=== PATIENT | male | born 1985 | race Caucasian/White ===

== ENCOUNTER 2023-02-19 14:19 | Observation (INO) | payer OTHER, MEDICAID, SELFPAY ==
[2023-02-19] VITALS (13 sets, daily range): BP systolic 90–129; BP diastolic 55–80; PULSE 65–111; RESP 14–19; TEMP 36.8–37.1; O2SAT 96–99; BMI 19.2
--- NOTE | 2023-02-19 17:29 | PC.NURSE ---
Pt brought back to fast track room at 1715. C/O dental pain and jaw pain x 3 days. Provider at chair-side for eval. VSS. Afebrile.
--- NOTE | 2023-02-19 17:36 | DI.CT.S_ITS ---
PROCEDURE: CT SOFT TISSUE NECK W CON INDICATIONS: right mandible/TMJ pain and swelling of neck, r/o abscess TECHNIQUE: After the administration of intravenous contrast, 3.0 mm axial sections acquired from the sella to the aortic arch. Additional oblique axial 3.0 mm sections acquired through the pharynx. 3 mm thick coronal and sagittal reformats were generated. For radiation dose reduction, the following was used: automated exposure control. COMPARISON: None. FINDINGS: Image quality: Excellent. Lymph nodes: No enlarged lymph nodes seen throughout the neck. Vessels: Visualized vasculature appears patent. Neck spaces: The oropharynx, nasopharynx, and pharynx demonstrate no mucosal lesions. The vocal cords, false vocal cords, pyriform sinuses, epiglottis, vallecula, and tongue base all appear normal. Extramucosal spaces appear unremarkable. Glands: The parotid and submandibular glands appear normal. Thyroid gland is unremarkable. Miscellaneous: Visualized brain and orbits appear normal. Small right apical pneumothorax. Superficial soft tissues appear normal. Bones: No suspicious bony lesions. Straightening and mild reversal of the normal cervical lordosis. Visualized sinuses and mastoids appear unremarkable. Several dental caries are noted. No periapical lucencies. IMPRESSION: 1. No organized fluid collections are seen. The temporomandibular joint appears within normal limits. 2. Small right apical pneumothorax. 3. Asymmetry medial to the right mandible, under the right tongue which is mildly hypoattenuating compared to the surrounding tissue of unclear etiology or significance. Correlate with patient's symptoms or physical exam. Findings discussed with Amparo PALACIOS by telephone 6:36 p.m. On 02/19/2023. Dictated by: Rony Gresham M.D. on 02/19/2023 at 18:25 Approved by: Rony Gresham M.D. on 02/19/2023 at 18:37
--- NOTE | 2023-02-19 17:44 | ED_ITS ---
HPI - Sepsis <Amparo Benito PA-C - Last Filed: 02/19/23 18:54> General Chief Complaint: Dental/Oral Mode of arrival: Ambulatory Source: patient Evaluation Sepsis Screen: No Definite Risk Sepsis Infection Criteria Present: Suspected New Infection Narrative: Patient is a 37-year-old male who presents with dental pain and inability to open his mouth. He reports a history of poor dentition with repeated dental abscesses. This last occurred 2 years ago and he was treated with oral antibiotics and improved. He presents today with right mandible/TMJ/neck soft tissue pain. Endorses chills 2 nights ago when he had a significant event with spasming of his jaw. He has been able to drink small amounts of fluids but not eat much because the difficulty opening his jaw. He denies cough or sore throat and is able to manage his secretions. He has a remote history of substance use, has not taken any pain medicine for this pain. He prefers to stay away from opiate medicines. Review of Systems <NAVA Bolivar Last Filed: 02/19/23 18:54> Review of Systems ROS Unobtainable: All systems reviewed & are unremarkable except as noted in HPI and below Patient History <NAVA Bolivar Last Filed: 02/19/23 18:54> Social History Smoking Status: Former smoker alcohol intake: former Smoking Status: Never smoker Substance Use Type: does not use Exam <NAVA Bolivar Last Filed: 02/19/23 18:54> Narrative Exam Narrative: GENERAL: 37 year old patient appears stated age. Well-developed patient, in mild distress. Patient is unkempt but pleasant and conversational. NEURO: AOx3. HEAD: Atraumatic. Normocephalic. EYES: Pupils equal round and reactive. Extraocular motions intact. No scleral icterus. No injection or drainage. ENT: Nose without bleeding or purulent drainage. Unable to visualize throat this patient has significant trismus, patient able to open jaw 10 mm. Multiple dental caries visible. Airway patent. NECK: Trachea midline. Tenderness over the right mandible at the angle of the jaw and over the TMJ small amount of edema just inferior to the angle of the mandible that is quite tender and slightly discolored. CARDIOVASCULAR: Regular rate and rhythm without murmurs, gallops, or rubs. RESPIRATORY: Clear to auscultation. Breath sounds equal bilaterally. No wheezes, rales, or rhonchi. EXTREMITIES: No edema or joint tenderness. SKIN: No rash or erythema of visible areas Initial Vital Signs Initial Vital Signs: Vital Signs Temperature 98.8 F 02/19/23 15:04 Pulse Rate 111 H 02/19/23 15:04 Respiratory Rate 17 02/19/23 15:04 Blood Pressure 129/80 02/19/23 15:04 Pulse Oximetry 99 02/19/23 15:04 Oxygen Delivery Method Room Air 02/19/23 15:04 <Luh Holguin DO - Last Filed: 02/20/23 04:28> Initial Vital Signs Initial Vital Signs: Vital Signs Temperature 98.8 F 02/19/23 15:04 Pulse Rate 111 H 02/19/23 15:04 Respiratory Rate 17 02/19/23 15:04 Blood Pressure 129/80 02/19/23 15:04 Pulse Oximetry 99 02/19/23 15:04 Oxygen Delivery Method Room Air 02/19/23 15:04 Course <Amparo Benito PA-C - Last Filed: 02/19/23 18:54> Orders Ordered: ED Orders 02/19/23 19:43 CT chest wo con Stat 02/19/23 20:00 Blood Culture Stat Acetaminophen (Acetaminophen 325 Mg Tablet) 650 mg PO Q4H PRN PRN Reason: Fever/Mild Pain (1-3) Last Admin: 02/20/23 01:17 Dose: 650 mg Documented By: Ketorolac Tromethamine (Ketorolac 10 Mg Tablet) 10 mg PO Q6HR PRN PRN Reason: Pain, Mild (1-3) Stop: 02/25/23 00:19 Oxycodone HCl (Oxycodone Ir 5 Mg Tablet) 5 mg PO Q4HR PRN PRN Reason: Pain, Moderate (4-6) Last Admin: 02/20/23 01:17 Dose: 5 mg Documented By: MS Discontinued Medications Ampicillin Sodium/Sulbactam (Sodium 3 gm/ Sodium Chloride) 100 mls @ 200 mls/hr IV NOW ONE Stop: 02/19/23 19:15 Last Infusion: 02/19/23 20:40 Dose: 0 mls/hr Documented By: Infusion: 02/19/23 20:06 Dose: 200 mls/hr Documented By: Infusion: 02/19/23 19:50 Dose: 0 mls/hr Documented By: Admin: 02/19/23 19:45 Dose: 200 mls/hr Documented By: RENATA Sodium Chloride (Normal Saline 0.9%) 1,000 mls @ 1,000 mls/hr IV BOLUS ONE Stop: 02/20/23 00:10 Last Infusion: 02/19/23 23:26 Dose: 1,000 mls/hr Documented By: Admin: 02/19/23 23:15 Dose: 1,000 mls/hr Documented By: RENATA Ketorolac Tromethamine (Ketorolac 30 Mg/Ml Vial) 15 mg IV NOW ONE Stop: 02/19/23 18:00 Last Admin: 02/19/23 18:08 Dose: 15 mg Documented By: AUSTYN Vital Signs Vital signs: Vital Signs - 8 hr 02/19/23 20:30 02/19/23 20:30 02/19/23 21:00 Pulse Rate 72 Respiratory Rate 19 Blood Pressure 107/73 117/78 Pulse Oximetry 97 Oxygen Delivery Method Room Air 02/19/23 21:00 02/19/23 21:30 02/19/23 21:30 Pulse Rate 70 68 Respiratory Rate 18 18 Blood Pressure 109/70 Pulse Oximetry 99 99 Oxygen Delivery Method Room Air Room Air 02/19/23 22:00 02/19/23 22:00 Pulse Rate 65 Respiratory Rate 17 Blood Pressure 108/64 Pulse Oximetry 97 Oxygen Delivery Method Room Air <Luh Holguin, DO - Last Filed: 02/20/23 04:28> Orders Ordered: ED Orders 02/19/23 19:43 CT chest wo con Stat 02/19/23 20:00 Blood Culture Stat Acetaminophen (Acetaminophen 325 Mg Tablet) 650 mg PO Q4H PRN PRN Reason: Fever/Mild Pain (1-3) Last Admin: 02/20/23 01:17 Dose: 650 mg Documented By: Ketorolac Tromethamine (Ketorolac 10 Mg Tablet) 10 mg PO Q6HR PRN PRN Reason: Pain, Mild (1-3) Stop: 02/25/23 00:19 Oxycodone HCl (Oxycodone Ir 5 Mg Tablet) 5 mg PO Q4HR PRN PRN Reason: Pain, Moderate (4-6) Last Admin: 02/20/23 01:17 Dose: 5 mg Documented By: MS Discontinued Medications Ampicillin Sodium/Sulbactam (Sodium 3 gm/ Sodium Chloride) 100 mls @ 200 mls/hr IV NOW ONE Stop: 02/19/23 19:15 Last Infusion: 02/19/23 20:40 Dose: 0 mls/hr Documented By: Infusion: 02/19/23 20:06 Dose: 200 mls/hr Documented By: Infusion: 02/19/23 19:50 Dose: 0 mls/hr Documented By: Admin: 02/19/23 19:45 Dose: 200 mls/hr Documented By: RENATA Sodium Chloride (Normal Saline 0.9%) 1,000 mls @ 1,000 mls/hr IV BOLUS ONE Stop: 02/20/23 00:10 Last Infusion: 02/19/23 23:26 Dose: 1,000 mls/hr Documented By: Admin: 02/19/23 23:15 Dose: 1,000 mls/hr Documented By: RENATA Ketorolac Tromethamine (Ketorolac 30 Mg/Ml Vial) 15 mg IV NOW ONE Stop: 02/19/23 18:00 Last Admin: 02/19/23 18:08 Dose: 15 mg Documented By: AUSTYN Vital Signs Vital signs: Vital Signs - 8 hr 02/19/23 20:30 02/19/23 20:30 02/19/23 21:00 Pulse Rate 72 Respiratory Rate 19 Blood Pressure 107/73 117/78 Pulse Oximetry 97 Oxygen Delivery Method Room Air 02/19/23 21:00 02/19/23 21:30 02/19/23 21:30 Pulse Rate 70 68 Respiratory Rate 18 18 Blood Pressure 109/70 Pulse Oximetry 99 99 Oxygen Delivery Method Room Air Room Air 02/19/23 22:00 02/19/23 22:00 Pulse Rate 65 Respiratory Rate 17 Blood Pressure 108/64 Pulse Oximetry 97 Oxygen Delivery Method Room Air Sepsis Evaluation (ED) <Amparo Benito PA-C - Last Filed: 02/19/23 18:54> Triage Screening Sepsis Screen: No Definite Risk Level 1 - Infection Sepsis Infection Criteria Present: Suspected New Infection Response It is my opinion that his patient have a likely infectious etiology for meeting sepsis criteria: Does Not Fluid calculation based on 30 mL/kg within 1hr of criteria: N/A Antibiotics initiated within 1 hr of Sepis dx: No Tissue Perfusion Reassessed within 6 hrs of infusion start time: No MDM - Sepsis <Amparo Benito PA-C - Last Filed: 02/19/23 18:54> Lab Data 02/19/23 17:44 02/19/23 17:44 Labs: Lab Results 02/19/23 02/19/23 02/19/23 Range/Units 17:44 17:44 17:44 WBC 8.6 (4.5-11.0) X10^3/uL RBC 4.91 (4.5-5.9) X10^6/uL Hgb 15.3 (13.5-17.5) g/dL Hct 44.3 (41-53) % MCV 90.2 (80-100) fL MCH 31.2 (26-34) PG MCHC 34.6 (30-36) % RDW 13.0 (11.6-14.8) % Plt Count 235 (150-400) X10^3/uL Neut % (Auto) 65.2 (50-75) % Lymph % (Auto) 26.1 (25-40) % Henry % (Auto) 7.1 (3-14) % Eos % (Auto) 1.0 L (2-4) % Baso % (Auto) 0.6 (0-2) % Neut # (Auto) 5600 (5573-0824) /uL Lymph # (Auto) 2200 (1663-5530) /uL Henry # (Auto) 600 (0-900) /uL Eos # (Auto) 100 (0-450) /uL Baso # (Auto) 0 (0-100) /uL Sodium 139 (137-145) mmol/L Potassium 4.1 (3.4-5.1) mmol/L Chloride 98 (98-107) mmol/L Carbon Dioxide 29 (22-32) mmol/L BUN 10 (9-20) mg/dL Creatinine 0.85 (0.66-1.25) mg/dL Estimated GFR > 60 (>60) mL/min BUN/Creatinine Ratio 11.8 (6-22) Glucose 100 (70-100) mg/dL Lactate 1.4 (0.7-2.1) mmol/L Calcium 10.3 H (8.4-10.2) mg/dL Total Bilirubin 0.7 (0.2-1.3) mg/dL AST 17 (17-59) IU/L ALT 14 (<50) IU/L Alkaline Phosphatase 67 (38-126) U/L Total Protein 8.8 H (6.3-8.2) g/dL Albumin 4.8 (3.5-5.0) g/dL Globulin 4.0 (1.7-4.1) g/dL Albumin/Globulin Ratio 1.2 (1.0-2.8) Urine Color Urine Appearance Urine pH (4.5-8.0) Ur Specific [place] (1.000-1.035) Urine Protein (Negative) Urine Glucose (UA) (Negative) g/dL Urine Ketones (NEGATIVE) Urine Occult Blood (Negative) Urine Nitrate (Negative) Urine Bilirubin (NEGATIVE) Urine Urobilinogen (0.2) E.U./dL Ur Leukocyte Esterase (NEGATIVE) Urine RBC (0-5/HPF) Urine WBC (0-5/HPF) Ur Squamous Epith Cells (0-5/HPF) Urine Bacteria (None) Ur Culture Indicated? 02/19/23 Range/Units 18:02 WBC (4.5-11.0) X10^3/uL RBC (4.5-5.9) X10^6/uL Hgb (13.5-17.5) g/dL Hct (41-53) % MCV (80-100) fL MCH (26-34) PG MCHC (30-36) % RDW (11.6-14.8) % Plt Count (150-400) X10^3/uL Neut % (Auto) (50-75) % Lymph % (Auto) (25-40) % Henry % (Auto) (3-14) % Eos % (Auto) (2-4) % Baso % (Auto) (0-2) % Neut # (Auto) (7465-3248) /uL Lymph # (Auto) (1822-8639) /uL Henry # (Auto) (0-900) /uL Eos # (Auto) (0-450) /uL Baso # (Auto) (0-100) /uL Sodium (137-145) mmol/L Potassium (3.4-5.1) mmol/L Chloride (98-107) mmol/L Carbon Dioxide (22-32) mmol/L BUN (9-20) mg/dL Creatinine (0.66-1.25) mg/dL Estimated GFR (>60) mL/min BUN/Creatinine Ratio (6-22) Glucose (70-100) mg/dL Lactate (0.7-2.1) mmol/L Calcium (8.4-10.2) mg/dL Total Bilirubin (0.2-1.3) mg/dL AST (17-59) IU/L ALT (<50) IU/L Alkaline Phosphatase (38-126) U/L Total Protein (6.3-8.2) g/dL Albumin (3.5-5.0) g/dL Globulin (1.7-4.1) g/dL Albumin/Globulin Ratio (1.0-2.8) Urine Color Yellow Urine Appearance Clear Urine pH 6.5 (4.5-8.0) Ur Specific [place] <=1.005 (1.000-1.035) Urine Protein Negative (Negative) Urine Glucose (UA) Negative (Negative) g/dL Urine Ketones Trace H (NEGATIVE) Urine Occult Blood Trace-intact (Negative) Urine Nitrate Negative (Negative) Urine Bilirubin Negative (NEGATIVE) Urine Urobilinogen 0.2 (0.2) E.U./dL Ur Leukocyte Esterase Negative (NEGATIVE) Urine RBC 0-1/hpf (0-5/HPF) Urine WBC None seen (0-5/HPF) Ur Squamous Epith Cells 0-1 /hpf (0-5/HPF) Urine Bacteria None seen (None) Ur Culture Indicated? Cult not indicated Imaging Data CT soft tissue neck: Radiologist's Impression: PROCEDURE:? CT SOFT TISSUE NECK W CON ? INDICATIONS:? right mandible/TMJ pain and swelling of neck, r/o abscess ? TECHNIQUE:? After the administration of intravenous contrast, 3.0 mm axial sections acquired from the sella to the aortic arch.? Additional oblique axial 3.0 mm sections acquired through the pharynx.? 3 mm thick coronal and sagittal reformats were generated.? For radiation dose reduction, the following was used:? automated exposure control.? ? COMPARISON:? None. ? FINDINGS:? Image quality:? Excellent.? ? Lymph nodes:? No enlarged lymph nodes seen throughout the neck.? ? Vessels:? Visualized vasculature appears patent.? ? Neck spaces:? The oropharynx, nasopharynx, and pharynx demonstrate no mucosal l esions.? The vocal cords, false vocal cords, pyriform sinuses, epiglottis, vallecula, and tongue base all appear normal.? Extramucosal spaces appear unremarkable.? ? Glands:? The parotid and submandibular glands appear normal.? Thyroid gland is unremarkable.? ? Miscellaneous:? Visualized brain and orbits appear normal.? Small right apical pneumothorax.? Superficial soft tissues appear normal. ? Bones:? No suspicious bony lesions.? Straightening and mild reversal of the normal cervical lordosis.? Visualized sinuses and mastoids appear unremarkable.? Several dental caries are noted.? No periapical lucencies. ? ? IMPRESSION:? ? 1. No organized fluid collections are seen.? The temporomandibular joint appears within normal limits. 2. Small right apical pneumothorax. 3. Asymmetry medial to the right mandible, under the right tongue which is mildly hypoattenuating compared to the surrounding tissue of unclear etiology or significance.? Correlate with patient's symptoms or physical exam. ? ? Findings discussed with Amparo PALACIOS by telephone 6:36 p.m. On 02/19/2023.? ? Dictated by: Rony Gresham M.D. on 02/19/2023 at 18:25 ? ? Approved by: Rony Gresham M.D. on 02/19/2023 at 18:37 ? MDM Narrative Medical decision making narrative: Multiple etiologies for patient's symptoms considered including, but not limited to: Dental infection, George's angina, peritonsillar abscess, parapharyngeal space infection. CT scan of soft tissue neck completed given patient's pain and swelling with point tenderness below the angle of the jaw on the right. Notified by radiology that there is a small pneumothorax on the right, patient has no complaints of chest pain and is saturating 100%. We will obtain chest x-ray. CT does not show any abscess. Radiology did comment on an asymmetric quality below the tongue; I palpated under the tongue with my finger and there was no focal tenderness, patient commented on pain that radiated into his right TMJ. Labs without evidence of infection. Patient also noted approximately 6 months of discolored and foul smelling urine. UA completed in the ER was no significant findings. Chest x-ray pending at the time of sign-out to Dr. Holguin. <Luh Holguin, - Last Filed: 02/20/23 04:28> Lab Data Labs: Lab Results 02/19/23 02/19/23 02/19/23 Range/Units 17:44 17:44 17:44 WBC 8.6 (4.5-11.0) X10^3/uL RBC 4.91 (4.5-5.9) X10^6/uL Hgb 15.3 (13.5-17.5) g/dL Hct 44.3 (41-53) % MCV 90.2 (80-100) fL MCH 31.2 (26-34) PG MCHC 34.6 (30-36) % RDW 13.0 (11.6-14.8) % Plt Count 235 (150-400) X10^3/uL Neut % (Auto) 65.2 (50-75) % Lymph % (Auto) 26.1 (25-40) % Henry % (Auto) 7.1 (3-14) % Eos % (Auto) 1.0 L (2-4) % Baso % (Auto) 0.6 (0-2) % Neut # (Auto) 5600 (9890-0164) /uL Lymph # (Auto) 2200 (3463-9547) /uL Henry # (Auto) 600 (0-900) /uL Eos # (Auto) 100 (0-450) /uL Baso # (Auto) 0 (0-100) /uL Sodium 139 (137-145) mmol/L Potassium 4.1 (3.4-5.1) mmol/L Chloride 98 (98-107) mmol/L Carbon Dioxide 29 (22-32) mmol/L BUN 10 (9-20) mg/dL Creatinine 0.85 (0.66-1.25) mg/dL Estimated GFR > 60 (>60) mL/min BUN/Creatinine Ratio 11.8 (6-22) Glucose 100 (70-100) mg/dL Lactate 1.4 (0.7-2.1) mmol/L Calcium 10.3 H (8.4-10.2) mg/dL Total Bilirubin 0.7 (0.2-1.3) mg/dL AST 17 (17-59) IU/L ALT 14 (<50) IU/L Alkaline Phosphatase 67 (38-126) U/L Total Protein 8.8 H (6.3-8.2) g/dL Albumin 4.8 (3.5-5.0) g/dL Globulin 4.0 (1.7-4.1) g/dL Albumin/Globulin Ratio 1.2 (1.0-2.8) Urine Color Urine Appearance Urine pH (4.5-8.0) Ur Specific [place] (1.000-1.035) Urine Protein (Negative) Urine Glucose (UA) (Negative) g/dL Urine Ketones (NEGATIVE) Urine Occult Blood (Negative) Urine Nitrate (Negative) Urine Bilirubin (NEGATIVE) Urine Urobilinogen (0.2) E.U./dL Ur Leukocyte Esterase (NEGATIVE) Urine RBC (0-5/HPF) Urine WBC (0-5/HPF) Ur Squamous Epith Cells (0-5/HPF) Urine Bacteria (None) Ur Culture Indicated? 02/19/23 Range/Units 18:02 WBC (4.5-11.0) X10^3/uL RBC (4.5-5.9) X10^6/uL Hgb (13.5-17.5) g/dL Hct (41-53) % MCV (80-100) fL MCH (26-34) PG MCHC (30-36) % RDW (11.6-14.8) % Plt Count (150-400) X10^3/uL Neut % (Auto) (50-75) % Lymph % (Auto) (25-40) % Henry % (Auto) (3-14) % Eos % (Auto) (2-4) % Baso % (Auto) (0-2) % Neut # (Auto) (9797-3866) /uL Lymph # (Auto) (6694-3880) /uL Henry # (Auto) (0-900) /uL Eos # (Auto) (0-450) /uL Baso # (Auto) (0-100) /uL Sodium (137-145) mmol/L Potassium (3.4-5.1) mmol/L Chloride (98-107) mmol/L Carbon Dioxide (22-32) mmol/L BUN (9-20) mg/dL Creatinine (0.66-1.25) mg/dL Estimated GFR (>60) mL/min BUN/Creatinine Ratio (6-22) Glucose (70-100) mg/dL Lactate (0.7-2.1) mmol/L Calcium (8.4-10.2) mg/dL Total Bilirubin (0.2-1.3) mg/dL AST (17-59) IU/L ALT (<50) IU/L Alkaline Phosphatase (38-126) U/L Total Protein (6.3-8.2) g/dL Albumin (3.5-5.0) g/dL Globulin (1.7-4.1) g/dL Albumin/Globulin Ratio (1.0-2.8) Urine Color Yellow Urine Appearance Clear Urine pH 6.5 (4.5-8.0) Ur Specific [place] <=1.005 (1.000-1.035) Urine Protein Negative (Negative) Urine Glucose (UA) Negative (Negative) g/dL Urine Ketones Trace H (NEGATIVE) Urine Occult Blood Trace-intact (Negative) Urine Nitrate Negative (Negative) Urine Bilirubin Negative (NEGATIVE) Urine Urobilinogen 0.2 (0.2) E.U./dL Ur Leukocyte Esterase Negative (NEGATIVE) Urine RBC 0-1/hpf (0-5/HPF) Urine WBC None seen (0-5/HPF) Ur Squamous Epith Cells 0-1 /hpf (0-5/HPF) Urine Bacteria None seen (None) Ur Culture Indicated? Cult not indicated MDM Narrative Medical decision making narrative: Multiple etiologies for patient's symptoms considered including, but not limited to: Dental infection, George's angina, peritonsillar abscess, parapharyngeal space infection. CT scan of soft tissue neck completed given patient's pain and swelling with point tenderness below the angle of the jaw on the right. Notified by radiology that there is a small pneumothorax on the right, patient has no complaints of chest pain and is saturating 100%. We will obtain chest x-ray. CT does not show any abscess. Radiology did comment on an asymmetric quality below the tongue; I palpated under the tongue with my finger and there was no focal tenderness, patient commented on pain that radiated into his right TMJ. Labs without evidence of infection. Patient also noted approximately 6 months of discolored and foul smelling urine. UA completed in the ER was no significant findings. Chest x-ray pending at the time of sign-out to Dr. Holguin. DR. Holguin-I received sign-out from a PC of seen evaluated patient myself and along side with her. Patient presents today with jaw pain on the right side. He initially reports some sort of spasm he may have had a fever once been getting worse over the last 3 days. He is unable to open his jaw completely. On my physical exam he is tender in his TMJ joint. He has mild submandibular cervical lymphadenopathy. He has no swelling. CT has been reviewed he has a right apical pneumothorax. There are no organized fluid collections that are seen and there is some abnormality in the right mandible near patient's tongue. On physical exam patient does not have any pain in his tongue he is managing his own secretions in fact he is quite thirsty. Unfortunately due to pain at the TMJ and jaw he is unable to open his mouth completely. This area that they are mentioning is not measured. Chest x-ray and CT of the chest again show a small apical pneumothorax on the right. This is unlikely related to why he is here today and an incidental finding. It is unclear how long this is been here. He is a smoker, possible bleb. He is not hypotensive or hypoxic. Case is discussed with Dr. Knowles who reports observation with repeat x-ray in the morning. However with dental pain ongoing issues prefers if patient be admitted to the hospitalist. Dr. Holley, recommends discussing case with ENT 21:20-Dr. Goodman updated on patient's symptoms test results reports out a fluid collection on the CT this is unlikely to be a George's angina, there is nothing for him to drain. Dr. Mckinnon spoke with Dr. Goodman himself in the conclusion was to talk was oral surgery for possible dental abscess There is no evidence of dental abscess on exam. He has no fever no leukocytosis he has no evidence of sepsis. He is tender in his TMJ it is unclear exactly what is happening in his jaw there is no evidence of a deep neck soft tissue infection. Nonetheless he is given a dose of IV Unasyn in the ED. I think it is reasonable to keep him on antibiotics, but again the CT does not show any fluid collection anywhere. He can is managing his own secretions without difficulty. He does drink through a straw but he is able to do so easily. Dr. Knowles again updated on very sent recommendations by hospitalist and ENT. At this time he agrees to admit the patient to observation for the pneumothorax. The patient should be discharged on amoxicillin 500mg twice a day for 7 days. Discharge Plan Departure Patient Disposition: Admitted as Observation Clinical Impression: Pneumothorax on right Admit Date/Time: 02/19/23 22:25 Admit Provider: Bernard Knowles
--- NOTE | 2023-02-19 17:53 | PC.NURSE ---
Addendum entered by Farrah Song R.N. 02/19/23 18:16: HR 99 Original Note: Patient has returned from CT. [employer] chair-side for consult in fast track room. Pt will go back to the lobby after [employer] consult, per PA provider, and wait for an available treatment room. 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
[2023-02-19 17:56] LABS: Add Manual Diff / Slide Review NO; Basophils Absolute Auto 0 /uL (0-100); Basophils Percent Auto 0.6 % (0-2); Eosinophils Absolute Auto 100 /uL (0-450); Hematocrit 44.3 % (41-53); Hemoglobin 15.3 g/dL (13.5-17.5); Lymphocytes Absolute Auto 2200 /uL (1100-4500); Lymphocytes Percent Auto 26.1 % (25-40); Mean Corpuscular HGB Conc 34.6 % (30-36); Mean Corpuscular Hemoglobin 31.2 PG (26-34); Mean Corpuscular Volume 90.2 fL (80-100); Monocytes Absolute Auto 600 /uL (0-900); Monocytes Percent Auto 7.1 % (3-14); Neutrophils Absolute Auto 5600 /uL (1500-7000); Neutrophils Percent Auto 65.2 % (50-75); Platelet Count 235 X10^3/uL (150-400); Red Blood Cell Count 4.91 X10^6/uL (4.5-5.9); White Blood Cell Count 8.6 X10^3/uL (4.5-11.0)
--- NOTE | 2023-02-19 17:59 | CM.SWNOTE ---
Addendum entered by Shannon Fabian 02/19/23 19:53: Per ED provider and charger operator, patient is to be admitted for further observation and treatment due to concern for pneumothorax and possible dental infections requiring antibiotic treatment. LIBBY Lazaro Original Note: ED FIRMWARE ARCHITECT Note FIRMWARE ARCHITECT receives consult for patient for housing resources. Patient is 37 y/o male who presents to ED due to concern for mouth pain, inability to eat and drink the last 3 days. FIRMWARE ARCHITECT enters room to meet with patient, patient presents as A/Ox4. Patient presents as euthymic, communicative and calm. Patient endorses he lives in his car and moved to the area to see the [facility]. Patient endorses he has been living in [place] or [facility] but a few months he was working in [facility]. Patient endorses he does not have a current dentist. Patient states he receives food stamps and has Medicaid insurance. Patient endorses he is looking for work and housing. FIRMWARE ARCHITECT provides patient with resources for dental care, housing and basic needs. Patient endorses he has a phone but presents with some concerns with using his phone. FIRMWARE ARCHITECT offers bus passes, patient denies need. Plan: Patient to d/c to community upon medical clearance. Patient to f/u with resources provided. LIBBY Lazaro
[2023-02-19 18:08] LABS: Alanine Aminotransferase 14 IU/L (<50); Albumin 4.8 g/dL (3.5-5.0); Albumin Globulin Ratio 1.2 (1.0-2.8); Alkaline Phosphatase 67 U/L (38-126); Aspartate Aminotransferase 17 IU/L (17-59); BUN Creatinine Ratio 11.8 (6-22); Bilirubin Total 0.7 mg/dL (0.2-1.3); Blood Urea Nitrogen 10 mg/dL (9-20); Calcium 10.3 mg/dL (8.4-10.2); Carbon Dioxide 29 mmol/L (22-32); Chloride 98 mmol/L (98-107); Estimated Glomerular Filt Rate > 60 mL/min (>60); Glucose 100 mg/dL (70-100); HEMOLYSIS < 15 (0-50); Lactate (Lactic Acid) 1.4 mmol/L (0.7-2.1); Potassium 4.1 mmol/L (3.4-5.1); Sodium 139 mmol/L (137-145); Total Protein 8.8 g/dL (6.3-8.2)
[2023-02-19] MEDS: KETOROLAC 30 MG/ML VIAL 15 MG IV (18:08)
[2023-02-19 18:19] LABS: Appearance Urine UA CLEAR; Bilirubin Urine UA NEGATIVE (NEGATIVE); Color Urine UA YELLOW; Glucose Urine UA NEGATIVE (Negative); Ketones Urine UA TRACE (NEGATIVE); Leukocyte Esterase Urine UA NEGATIVE (NEGATIVE); Nitrite Urine UA NEGATIVE (Negative); Occult Blood Urine UA TRACE-INTACT (Negative); Protein Urine UA NEGATIVE (Negative); Specific Gravity Urine UA <=1.005 (1.000-1.035); Urobilinogen Urine UA 0.2 E.U./dL (0.2); pH Urine UA 6.5 (4.5-8.0)
[2023-02-19 18:29] LABS: Bacteria Urine None Seen; Culture Indicated Urine Cult Not Indicated; RBC Urine 0-1/HPF (0-5/HPF); Squamous Epithelial Cell Urine 0-1 /HPF (0-5/HPF); WBC Urine None Seen (0-5/HPF)
--- NOTE | 2023-02-19 18:37 | DI.RAD.S_ITS ---
PROCEDURE: XR CHEST 2V INDICATIONS: pneumo seen on CT TECHNIQUE: 2 views of the chest were acquired. COMPARISON: None. FINDINGS: Surgical changes and devices: None. Lungs and pleura: Lungs are clear. No pleural effusion. Small right apical pneumothorax. Mediastinum: Mediastinal contours are normal. Heart size is normal. Bones and chest wall: No suspicious bony abnormalities. Soft tissues appear unremarkable. IMPRESSION: Small right apical pneumothorax. No focal pulmonary consolidations. Dictated by: Rony Gresham M.D. on 02/19/2023 at 19:40 Approved by: Rony Gresham M.D. on 02/19/2023 at 19:41
--- NOTE | 2023-02-19 19:43 | DI.CT.S_ITS ---
PROCEDURE: CT CHEST WO CON INDICATIONS: right pneumo TECHNIQUE: Noncontrast 5 mm thick sections acquired from the pulmonary apices to the posterior costophrenic angles. 1 mm lung window, 5 mm thick coronal and sagittal and 7 mm axial MIP reformats were then acquired. For radiation dose reduction, the following was used: automated exposure control, adjustment of mA and/or kV according to patient size. COMPARISON: [facility], CR, XR CHEST 2V, 02/19/2023, 19:05. FINDINGS: Image quality: Excellent. Lower Neck: No lymphadenopathy by size criteria. Thyroid: Visualized thyroid demonstrates no discrete nodules. Axillae: No lymphadenopathy by size criteria. Chest Wall: Unremarkable. Bones: Visualized osseous structures demonstrate no suspicious lesions. Lungs and Airways: There is mild atelectasis or scarring in the right apex. No acute consolidation. There is a 0.3 cm nodule in the right upper lobe on series 3, image 115. The trachea and central airways are patent. Pleura: There is a small right apical pneumothorax. No pleural effusions. Heart: Heart size is normal. No pericardial effusion. Thoracic Vessels: The aorta and pulmonary arteries are normal in size. Mediastinum and Elenita: No lymphadenopathy by size criteria. Esophagus: No wall thickening. No hiatal hernia. Abdomen: Visualized upper abdominal solid organs and bowel loops appear normal in the absence of contrast. IMPRESSION: 1. Small right apical pneumothorax. 2. Mild right apical atelectasis or scarring. 3. Small right upper lobe 0.3 cm nodule. If patient is at high risk for malignancy, a follow-up CT may be performed in 12 months to demonstrate stability. Dictated by: Kelvin Valentin M.D. on 02/19/2023 at 20:22 Approved by: Kelvin Valentin M.D. on 02/19/2023 at 20:27
[2023-02-19] MEDS: AMPICILLIN/SULBACTAM 3 GM 3 GM in SODIUM CHLORIDE 0.9% 100 ML IV (19:45)
[2023-02-19] MEDS: SODIUM CHLORIDE 0.9% 1,000 ML 1000 ML IV (23:15)
[2023-02-20 00:10] VITALS: BP 108/70; PULSE 67; RESP 17; TEMP 36.7; O2SAT 97
[2023-02-20] MEDS: ACETAMINOPHEN 325 MG TABLET 650 MG PO (01:17)
[2023-02-20] MEDS: OXYCODONE IR 5 MG TABLET PO (01:17)
--- NOTE | 2023-02-20 07:00 | PC.NURSE ---
Patient showing ST elevation on 3 leads, per ELECTRONICS UTILITY WORKER. Notified Dr. Knowles and received order for EKG. EKG results continue to show ST Elevations, Dr. Knowles notified and received order for troponin.
[2023-02-20 07:11] LABS: Troponin I < 0.012 ng/mL (0.01-0.034)
--- NOTE | 2023-02-20 07:14 | DI.RAD.S_ITS ---
PROCEDURE: XR CHEST 1V INDICATIONS: f/u pnx TECHNIQUE: One view of the chest was acquired. COMPARISON: [facility], CR, XR CHEST 2V, 02/19/2023, 19:05. FINDINGS: Surgical changes and devices: None. Lungs and pleura: Unchanged trace right apical pneumothorax. Mediastinum: Mediastinal contours appear normal. Heart size is normal. Bones and chest wall: No suspicious bony lesions. Overlying soft tissues appear unremarkable. IMPRESSION: Unchanged trace right apical pneumothorax. Dictated by: Antwan Gray M.D. on 02/20/2023 at 8:56 Approved by: Antwan Gray M.D. on 02/20/2023 at 8:57
[2023-02-20] MEDS: KETOROLAC 10 MG TABLET PO (08:42)
[2023-02-20 09:06] VITALS: BP 105/66; PULSE 67; RESP 18; TEMP 36.8; O2SAT 97
--- NOTE | 2023-02-20 10:27 | P.HP_ITS ---
History of Present Illness History of Present Illness Date Patient Seen: 02/20/23 Time Patient Seen: 10:27 Chief complaint: can't open mouth T-3 can't drink or eat Narrative: 37-year-old homeless man with a history of substance abuse and poor dentition presents to the emergency department at [facility] February 19 for evaluation jaw pain. He had difficulty opening his mouth for the past several days and difficulty swallowing liquids. CT soft tissue neck demonstrates an incidental small right apical pneumothorax and asymmetry medial to the right mandible under the right tongue mildly hypoattenuating. No shortness of breath. These findings were discussed with the hospitalist as well as ENT who recommended dental follow-up and antibiotic therapy. He was admitted to the hospital for observation of his pneumothorax. Repeat chest x-ray this morning demonstrates unchanged small apical pneumothorax. No difficulty breathing overnight. Oxygen saturations remained 100% on room air. He is tolerating sips of liquids. [facility] Social History Smoking Status: Former smoker alcohol intake: former Meds Home Medications and Allergies Home Medications Medication Instructions Recorded Confirmed Type acetaminophen 325 mg capsule 650 mg PO QID PRN pain #60 caps 02/20/23 Rx (Tylenol) amoxicillin 500 mg-potassium 1 tab PO BID #14 tabs 02/20/23 Rx clavulanate 125 mg tablet (Augmentin) Allergies Allergy/AdvReac Type Severity Reaction Status Date / Time olanzapine Allergy Verified 02/19/23 20:06 Exam Vital Signs (past 8 hours): - 02/20/23 09:06 02/20/23 08:30 Temperature 98.3 F Pulse Rate 67 Respiratory Rate 18 Blood Pressure 105/66 Pulse Oximetry 97 Oxygen Delivery Method Room Air Oxygen Delivery Method Room Air Oxygen Flow Rate 0 Narrative Exam Narrative: GENERAL: Thin adult man resting comfortably, in no acute distress. HEENT: Normocephalic, atraumatic. No scleral icterus CHEST: Rising symmetrically. No audible wheezes CARDIOVASCULAR: Warm and well perfused. Regular rate ABDOMEN: Soft, non-tender, non-distended EXTREMITIES: Normal tone and without edema. NEUROLOGIC: Moving all extremities spontaneously. No gross motor deficits. Objective Labs 02/19/23 17:44 02/19/23 17:44 Labs: Laboratory Results - last 24 hr 02/19/23 02/19/23 02/19/23 17:44 17:44 17:44 WBC 8.6 RBC 4.91 Hgb 15.3 Hct 44.3 MCV 90.2 MCH 31.2 MCHC 34.6 RDW 13.0 Plt Count 235 Neut % (Auto) 65.2 Lymph % (Auto) 26.1 [place] % (Auto) 7.1 Eos % (Auto) 1.0 L Baso % (Auto) 0.6 Neut # (Auto) 5600 Lymph # (Auto) 2200 [place] # (Auto) 600 Eos # (Auto) 100 Baso # (Auto) 0 Sodium 139 Potassium 4.1 Chloride 98 Carbon Dioxide 29 BUN 10 Creatinine 0.85 Estimated GFR > 60 BUN/Creatinine Ratio 11.8 Glucose 100 Lactate 1.4 Calcium 10.3 H Total Bilirubin 0.7 AST 17 ALT 14 Alkaline Phosphatase 67 Troponin I Total Protein 8.8 H Albumin 4.8 Globulin 4.0 Albumin/Globulin Ratio 1.2 Urine Color Urine Appearance Urine pH Ur Specific [place] Urine Protein Urine Glucose (UA) Urine Ketones Urine Occult Blood Urine Nitrate Urine Bilirubin Urine Urobilinogen Ur Leukocyte Esterase Urine RBC Urine WBC Ur Squamous Epith Cells Urine Bacteria Ur Culture Indicated? 02/19/23 02/20/23 18:02 06:29 WBC RBC Hgb Hct MCV MCH MCHC RDW Plt Count Neut % (Auto) Lymph % (Auto) [place] % (Auto) Eos % (Auto) Baso % (Auto) Neut # (Auto) Lymph # (Auto) [place] # (Auto) Eos # (Auto) Baso # (Auto) Sodium Potassium Chloride Carbon Dioxide BUN Creatinine Estimated GFR BUN/Creatinine Ratio Glucose Lactate Calcium Total Bilirubin AST ALT Alkaline Phosphatase Troponin I < 0.012 Total Protein Albumin Globulin Albumin/Globulin Ratio Urine Color Yellow Urine Appearance Clear Urine pH 6.5 Ur Specific [place] <=1.005 Urine Protein Negative Urine Glucose (UA) Negative Urine Ketones Trace H Urine Occult Blood Trace-intact Urine Nitrate Negative Urine Bilirubin Negative Urine Urobilinogen 0.2 Ur Leukocyte Esterase Negative Urine RBC 0-1/hpf Urine WBC None seen Ur Squamous Epith Cells 0-1 /hpf Urine Bacteria None seen Ur Culture Indicated? Cult not indicated Assessment & Plan Assessment and plan (1) Pneumothorax on right: Status: Acute Assessment & Plan narrative: 37-year-old man admitted to the hospital for observation of a incidental small right apical pneumothorax. Initially presented to the hospital for evaluation of jaw pain and CT neck demonstrates an asymmetry medial to the right mandible under the right tongue without no fluid collection. He is able to tolerate sips of liquid he is handling his own secretions without difficulty no fever or leukocytosis. Repeat chest x-ray demonstrates unchanged pneumothorax he is having no respiratory difficulty and is stable to discharge in regards to the pneumothorax. In regards to the oropharynx case was discussed with ENT who recommends dental follow up in discharge home on 7 days of Augmentin. Quality VTE Deep Vein Thrombosis/Pulmonary Embolism Present on Admission: No
--- NOTE | 2023-02-20 12:30 | CM.DANOTE ---
Initial DCP Assessment Note Pt is a 37 yo male, currently living in his car, per chart review- PMH includes substance abuse and poor dentition , arrives with days of mouth/jaw pain. CT imaging identified a small spontaneous pneumothorax as well as some abnormal tissue around his jaw line, abx therapy and outpatient dental follow up recommended. Dr Knowles has discharged patient today as pneumothorax is stable. Provider asks this LINE UP WORKER discuss dental follow up with patient. PCP: None Payer: [employer] Patient was seen while in the ER by GANESH who provided LINE UP WORKER resources for dental care, housing and basic needs. Patient confirms that he is living in his car, denies drug and alcohol use, says he has not had a brick and mortar home for 7 years. Patient hopes to secure employment in the near future. Strongly encouraged patient to connect with [facility] [employer] in [facility] to access resources for housing and basic needs. Discussed [facility] as a good resource for dental care and provided the contact/location for both [facility] and [facility] dental clinics. Encouraged patient to call to make an appt IKER w/the phone in his patient room , as patient's cell has not been working per patient report. Plan: Discharge back to private vehicle, resources for dental care, housing and basic needs provided. CJ Yoder Discharge Planning/Care Management CM Discharge Assessment Start: 02/20/23 11:34 Freq: Status: Active Protocol: Document 02/20/23 11:57 KEILA (Rec: 02/20/23 12:30 KEILA [id number]) Discharge Planning Assessment Assigned Shiftman CJ Singh DPOA/Assigned Designee Name No one Advance Directives? No History Provided By Patient Prior Living Arrangements Homeless Comment Lives in his car Type of transportation used prior to Drives own vehicle admit Independent with ADL's Yes Is patient alert and oriented? Yes Barriers to Discharge No Transportation Arrangement Own car Referrals Initiated None needed Whiteboard Updated in Patient Room with Yes name and ext. # of Shiftman
--- NOTE | 2023-02-20 13:08 | PC.NURSE ---
Patient is AxOx4, VSS, O2 sats @ 98% on RA. OOB independently, eating/drinking this morning. Patient placed on tele overnight d/t a brief episode of ST elevation per night RN, troponin came back this mornin.012. Patient also had sinus bradycardia this afternoon, MD Knowles aware. Discharge education given to patient regarding community resources and PO antibiotics. Provided patient with phone number to contact lab when blood cultures result. Patient verbalized understanding, all questions answered. IV and tele removed. All belongings are with patient. Escorted patient down to [facility] to picking crew supervisor prescriptions.
== END 2023-02-20 13:00 | disposition home or self-care (01) ==
LOC: ED 17:33 → AC 22:25
PROVIDERS: Physician Assistant; Admitting Provider Surgery; Emergency Provider Emergency Medicine; Referring Provider Emergency Medicine; Visit Provider Surgery
DX: R68.84 Jaw pain (principal)
CPT/HCPCS: 36415; 70491; 71045; 71046; 71250; 80053; 81001; 83605; 84484; 85025; 87040; 93005; 96365; 96375; 99234; 99284; 99285; G0378; J0295; J1885

== ENCOUNTER 2023-04-21 11:30 | Emergency (ER) | payer OTHER, MEDICAID, SELFPAY ==
[2023-02-19 22:37] VITALS: BMI 19.2
[2023-04-21 11:39] VITALS: BP 128/73; PULSE 104; RESP 18; TEMP 37; O2SAT 100; BMI 20.2
--- NOTE | 2023-04-21 12:12 | ED.RECABL ---
HPI - Recheck/Abnormal Lab/Rx <Amparo Benito PA-C - Last Filed: 04/21/23 14:51> General Chief Complaint: Recheck/Abnormal Lab/Rx Stated Complaint: cant move jaw, swelling in jaw Time Seen by Provider: 04/21/23 12:07 Source: patient Mode of arrival: Ambulatory History of Present Illness HPI narrative: Patient is a 38-year-old male who is currently experiencing homelessness who presents with right jaw pain and swelling and concern for convulsions. Patient was seen in the ER in January by myself for right jaw pain and swelling as well as trismus. A CT was done to evaluate for abscess; dental abscess seen and patient treated with oral antibiotics. No deeper space infection appreciated on CT but incidental finding of apical pneumothorax. Patient was hospitalized and observed overnight, remained stable and was discharged. He does report that his dental infection and pain improved while taking the prior course of antibiotics. The symptoms slowly returned after the antibiotics were completed. Patient had an appointment to see a dentist in [place] regarding the dental abscess but missed the appointment. He currently lives in his car and the car does operate, but he notes he feels like his body is coming apart when he drives so he prefers to take the bus. He is able to afford the bus ticket to [place] and knows how to get there. He has been going to the [facility] for showers and is somewhat engaged in accessing other support. He but this morning at the library with someone from the [facility] as well as 2 members of the community outreach team. They encouraged him to come the ER for assessment because he is feeling unwell. He is unable to open his jaw and has been eating primarily baby foods. The convulsions are described as significant tremors of his upper and lower extremities and sometimes of his jaw. He does not lose consciousness during these times. He does not associate them with any particular environmental factors or actions. Patient reports he has not used any substances in 5 years. He had a few drinks of alcohol approximately 1 year ago but none since. He is currently taking no daily medications. He has a history of mental illness and has taken medications for this in the past but none currently. He has a history of hospitalization for mental illness. He is not currently engaged with a primary care provider or a mental health provider. Related Data Previous Rx's Medication Instructions Recorded amoxicillin 875 mg-potassium 1 tab PO BID #20 tabs 04/21/23 clavulanate 125 mg tablet Allergies Allergy/AdvReac Type Severity Reaction Status Date / Time olanzapine Allergy Verified 02/19/23 20:06 Review of Systems <Amparo Benito PA-C - Last Filed: 04/21/23 14:51> Review of Systems ROS Unobtainable: All systems reviewed & are unremarkable except as noted in HPI and below Patient History <Amparo Benito PA-C - Last Filed: 04/21/23 14:51> Social History Smoking Status: Current some day smoker alcohol intake: former Smoking Status: Current some day smoker tobacco type: cigarettes and vaping Substance Use Type: does not use Exam <Amparo Benito PA-C - Last Filed: 04/21/23 14:51> Narrative Exam Narrative: GENERAL: 38 year old patient appears older than stated age. Patient appears fatigued. Patient is unkempt, very thin. NEURO: AOx3. HEAD: Atraumatic. Normocephalic. EYES: Pupils equal round and reactive. Extraocular motions intact. No scleral icterus. No injection or drainage. ENT: Nose without bleeding or purulent drainage. Throat without erythema, tonsillar hypertrophy or exudate. Airway patent. There is swelling of the external right jaw at the angle of the mandible and a palpable tender lump. There is a visible hole in his right lower molars with surrounding erythema. He is unable to open his jaw more than 10 mm. + halitosis. NECK: Trachea midline. He is full range of motion of his neck. CARDIOVASCULAR: Regular rate and rhythm without murmurs, gallops, or rubs. RESPIRATORY: Clear to auscultation. Breath sounds equal bilaterally. No wheezes, rales, or rhonchi. GASTROINTESTINAL: Abdomen soft, non-tender, nondistended. EXTREMITIES: No edema or joint tenderness. SKIN: No rash or erythema of visible areas Initial Vital Signs Initial Vital Signs: Vital Signs Temperature 98.6 F 04/21/23 11:39 Pulse Rate 104 H 04/21/23 11:39 Respiratory Rate 18 04/21/23 11:39 Blood Pressure 128/73 04/21/23 11:39 Pulse Oximetry 100 04/21/23 11:39 Oxygen Delivery Method Room Air 04/21/23 11:39 <Anjelica Berg DO - Last Filed: 04/22/23 09:35> Initial Vital Signs Initial Vital Signs: Vital Signs Temperature 98.6 F 04/21/23 11:39 Pulse Rate 104 H 04/21/23 11:39 Respiratory Rate 18 04/21/23 11:39 Blood Pressure 128/73 04/21/23 11:39 Pulse Oximetry 100 04/21/23 11:39 Oxygen Delivery Method Room Air 04/21/23 11:39 Course <Amparo Benito PA-C - Last Filed: 04/21/23 14:51> Orders Ordered: ED Orders 04/21/23 11:48 Consult to [facility] Flour Inspector Stat 04/21/23 13:02 CBC Auto Diff [Complete Blood Count AUTO DIFF] Stat CMP [Comprehensive Metabolic Panel] Stat Magnesium Stat Phosphorous Stat Vital Signs Vital signs: Vital Signs - 8 hr 04/21/23 11:39 Temperature 98.6 F Pulse Rate 104 H Respiratory Rate 18 Blood Pressure 128/73 Pulse Oximetry 100 Oxygen Delivery Method Room Air <Anjelica Berg DO - Last Filed: 04/22/23 09:35> Orders Ordered: ED Orders 04/21/23 11:48 Consult to [facility] Flour Inspector Stat 04/21/23 13:02 CBC Auto Diff [Complete Blood Count AUTO DIFF] Stat CMP [Comprehensive Metabolic Panel] Stat Magnesium Stat Phosphorous Stat Vital Signs Vital signs: Vital Signs - 8 hr 04/21/23 11:39 Temperature 98.6 F Pulse Rate 104 H Respiratory Rate 18 Blood Pressure 128/73 Pulse Oximetry 100 Oxygen Delivery Method Room Air MDM - Recheck/Abnormal Lab/Rx <Amparo Benito PA-C - Last Filed: 04/21/23 14:51> Lab Data 04/21/23 13:02 04/21/23 13:02 Labs: Lab Results 04/21/23 Range/Units 13:02 WBC 12.3 H (4.5-11.0) X10^3/uL RBC 4.55 (4.5-5.9) X10^6/uL Hgb 14.4 (13.5-17.5) g/dL Hct 41.5 (41-53) % MCV 91.2 (80-100) fL MCH 31.7 (26-34) PG MCHC 34.7 (30-36) % RDW 13.5 (11.6-14.8) % Plt Count 232 (150-400) X10^3/uL Neut % (Auto) 78.3 H (50-75) % Lymph % (Auto) 12.3 L (25-40) % [place] % (Auto) 8.1 (3-14) % Eos % (Auto) 0.7 L (2-4) % Baso % (Auto) 0.6 (0-2) % Neut # (Auto) 9600 H (3263-0283) /uL Lymph # (Auto) 1500 (9660-7978) /uL [place] # (Auto) 1000 H (0-900) /uL Eos # (Auto) 100 (0-450) /uL Baso # (Auto) 100 (0-100) /uL Sodium 137 (137-145) mmol/L Potassium 4.8 (3.4-5.1) mmol/L Chloride 98 (98-107) mmol/L Carbon Dioxide 32 (22-32) mmol/L BUN 23 H (9-20) mg/dL Creatinine 0.72 (0.66-1.25) mg/dL Estimated GFR > 60 (>60) mL/min BUN/Creatinine Ratio 31.9 H (6-22) Glucose 108 H (70-100) mg/dL Calcium 10.0 (8.4-10.2) mg/dL Phosphorus 3.9 (2.5-4.5) mg/dL Magnesium 2.0 (1.6-2.3) mg/dL Total Bilirubin 0.6 (0.2-1.3) mg/dL AST 17 (17-59) IU/L ALT 12 (<50) IU/L Alkaline Phosphatase 79 (38-126) U/L Total Protein 8.5 H (6.3-8.2) g/dL Albumin 4.5 (3.5-5.0) g/dL Globulin 4.0 (1.7-4.1) g/dL Albumin/Globulin Ratio 1.1 (1.0-2.8) MDM Narrative Medical decision making narrative: Multiple etiologies for patient's symptoms considered including, but not limited to: Dental abscess, George angina, neck deep space infection. For the convulsions, differential includes a seizure disorder, electrolyte abnormalities, substance use/withdrawal, psychiatric manifestation. Patient clearly has a dental abscess with a tender lump at the angle of the jaw on the right. He has no swelling under his tongue or lower in his neck. He is able to manage his secretions. His labs show a leukocytosis without other clinically significant lab abnormality. There is no derangement of his electrolytes that would explain the convulsions. By history, these do not sound like a seizure disorder as he remains fully awake throughout them and does not report any sort of postictal period. He has no history of seizure disorder. At this time, I do not see an obvious etiology for the convulsions and encouraged patient to establish with a primary care provider who can help him further investigate and coordinate with mental health care. He has a dental abscess but I have very low suspicion for a deep space neck infection or other emergent pathology. We will start 10 day course of Augmentin and an appointment was made for him by LARGE ANIMAL HUSBANDRY TECHNICIAN for 04/24/2023 at 9:00 a.m. the outreach team will continue to work with him on encouraging him to access services. Reviewed return precautions Patient's symptoms improved over duration of stay with above-stated therapies. Findings and discharge diagnosis discussed with patient/family followed by verbalization of understanding Return precautions discussed with patient/family whom verbalize understanding of diagnosis and plan <Anjelica Berg, - Last Filed: 04/22/23 09:35> Lab Data Labs: Lab Results 04/21/23 Range/Units 13:02 WBC 12.3 H (4.5-11.0) X10^3/uL RBC 4.55 (4.5-5.9) X10^6/uL Hgb 14.4 (13.5-17.5) g/dL Hct 41.5 (41-53) % MCV 91.2 (80-100) fL MCH 31.7 (26-34) PG MCHC 34.7 (30-36) % RDW 13.5 (11.6-14.8) % Plt Count 232 (150-400) X10^3/uL Neut % (Auto) 78.3 H (50-75) % Lymph % (Auto) 12.3 L (25-40) % [place] % (Auto) 8.1 (3-14) % Eos % (Auto) 0.7 L (2-4) % Baso % (Auto) 0.6 (0-2) % Neut # (Auto) 9600 H (0360-2890) /uL Lymph # (Auto) 1500 (5993-8456) /uL [place] # (Auto) 1000 H (0-900) /uL Eos # (Auto) 100 (0-450) /uL Baso # (Auto) 100 (0-100) /uL Sodium 137 (137-145) mmol/L Potassium 4.8 (3.4-5.1) mmol/L Chloride 98 (98-107) mmol/L Carbon Dioxide 32 (22-32) mmol/L BUN 23 H (9-20) mg/dL Creatinine 0.72 (0.66-1.25) mg/dL Estimated GFR > 60 (>60) mL/min BUN/Creatinine Ratio 31.9 H (6-22) Glucose 108 H (70-100) mg/dL Calcium 10.0 (8.4-10.2) mg/dL Phosphorus 3.9 (2.5-4.5) mg/dL Magnesium 2.0 (1.6-2.3) mg/dL Total Bilirubin 0.6 (0.2-1.3) mg/dL AST 17 (17-59) IU/L ALT 12 (<50) IU/L Alkaline Phosphatase 79 (38-126) U/L Total Protein 8.5 H (6.3-8.2) g/dL Albumin 4.5 (3.5-5.0) g/dL Globulin 4.0 (1.7-4.1) g/dL Albumin/Globulin Ratio 1.1 (1.0-2.8) Discharge Plan Departure Patient Disposition: Home Clinical Impression: Abscess, dental Instructions: Tooth Abscess, DI for Dental Pain Activity Restrictions/Additional Instructions: *You have been diagnosed with dental abscess on the right. I have prescribed a 10 day course of Augmentin, and antibiotic commonly used to treat dental infections. It is very important that you go to the dentist as scheduled on April 24 at 9:00 a.m. at [facility] in [place]. You need definitive care of this dental abscess in order for this to heal. I also suggest that you establish care with a primary care provider to further investigate the tremors that you are having. You can go to the desk of the family medicine clinic and schedule an appointment. *What to do: *Please continue to take your regular medications as directed. [x ] New medication prescriptions sent to your pharmacy: [facility] [ ] New medication written as a paper prescription [ ] No new medications given *Please follow up with your primary care provider in 2-3 days, call for an appointment. Let them know you were seen in the Emergency Department and that we ask that you be seen in follow up. We will electronically transmit a record of today's note if your PCP is in our system *If you do not have a primary care provider please contact the [facility] Resource line at [phone]. They will ask some questions about your medical history and help get you set up with a doctor in the community. *Return to Emergency Department if you should have any new, worsening or concerning symptoms, such as [fever greater than 101 F, shaking chills, worsening pain, persistent vomiting or other concerning symptoms]. Prescriptions: New amoxicillin-pot clavulanate 875-125 mg tablet 1 tab PO BID Qty: 20 0RF Stand Alone Forms: Patient Portal/API ED Sign-out <Anjelica Berg, - Last Filed: 04/22/23 09:35> Cosign ED Attending Dolly Attestation: I was immediately available in the department for consultation.
[2023-04-21 13:10] LABS: Add Manual Diff / Slide Review NO; Basophils Absolute Auto 100 /uL (0-100); Basophils Percent Auto 0.6 % (0-2); Eosinophils Absolute Auto 100 /uL (0-450); Eosinophils Percent Auto 0.7 % (2-4); Hematocrit 41.5 % (41-53); Hemoglobin 14.4 g/dL (13.5-17.5); Lymphocytes Absolute Auto 1500 /uL (1100-4500); Lymphocytes Percent Auto 12.3 % (25-40); Mean Corpuscular HGB Conc 34.7 % (30-36); Mean Corpuscular Hemoglobin 31.7 PG (26-34); Mean Corpuscular Volume 91.2 fL (80-100); Monocytes Absolute Auto 1000 /uL (0-900); Monocytes Percent Auto 8.1 % (3-14); Neutrophils Absolute Auto 9600 /uL (1500-7000); Neutrophils Percent Auto 78.3 % (50-75); Platelet Count 232 X10^3/uL (150-400); Red Blood Cell Count 4.55 X10^6/uL (4.5-5.9); Red Cell Distribution Width 13.5 % (11.6-14.8); White Blood Cell Count 12.3 X10^3/uL (4.5-11.0)
--- NOTE | 2023-04-21 13:18 | CM.SWNOTE ---
ED FREIGHT CONDUCTOR Note Patient is 38 y/o male who presents to ED due to concern for tooth pain, abbesses in lower right of mouth, unable to open jaw. Patient states he missed his recent dental appt. Patient had similar presentation to ED in January and was admitted for surgery due to concern for Pneumothorax. Patient is currently homeless in [facility], living in car. 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 It is reported that patient has mostly been utilizing showers from [facility] but patient is interested in looking into housing and getting an intake appt. It is reported that patient has scheduled meeting with Riana at [facility] to discuss further services and housing. FREIGHT CONDUCTOR enters room to meet with patient, patient presents as A/Ox4, quiet, euthymic, calm, communicative but responds with limited responses. Patient states he is doing alright. FREIGHT CONDUCTOR offers patient bus passes and patient denies need and states he can get himself to appts. Patient states he does not have a phone. Patient gives permission for FREIGHT CONDUCTOR to reschedule his dental appt as patient is in need of emergent dental care. Patient states he missed an appt with [facility], FREIGHT CONDUCTOR calls [facility] and patient is not a patient of clinic. FREIGHT CONDUCTOR calls [facility], it is reported that patient missed evaluation appt, FREIGHT CONDUCTOR asks to reschedule appt for patient. [facility] schedules appt for patient for Thursday04/24/23 at 9 AM check in. FREIGHT CONDUCTOR provides this information with [facility] as they will remind patient of appt and assist patient in getting to appt. FREIGHT CONDUCTOR provides patient with dental clinic information regarding a dental clinic in [place] that is offering free dental care on Thursday05/08/23 if patient is still in need of dental care. Patient indicates agreement and understanding. Patient denies further needs from FREIGHT CONDUCTOR. Plan: patient to d/c to community upon medical clearance, patient to f/u with [facility] appt for Tuesday 04/24, [facility] [employer] and [facility] to f/u with patient's needs. Shannon Fabian, RECORD RETRIEVAL SPECIALIST
[2023-04-21 13:29] LABS: Alanine Aminotransferase 12 IU/L (<50); Albumin 4.5 g/dL (3.5-5.0); Albumin Globulin Ratio 1.1 (1.0-2.8); Alkaline Phosphatase 79 U/L (38-126); Aspartate Aminotransferase 17 IU/L (17-59); BUN Creatinine Ratio 31.9 (6-22); Bilirubin Total 0.6 mg/dL (0.2-1.3); Blood Urea Nitrogen 23 mg/dL (9-20); Carbon Dioxide 32 mmol/L (22-32); Chloride 98 mmol/L (98-107); Estimated Glomerular Filt Rate > 60 mL/min (>60); Glucose 108 mg/dL (70-100); HEMOLYSIS < 15 (0-50); Phosphorous 3.9 mg/dL (2.5-4.5); Potassium 4.8 mmol/L (3.4-5.1); Sodium 137 mmol/L (137-145); Total Protein 8.5 g/dL (6.3-8.2)
[2023-04-21 14:30] VITALS: BP 111/55; PULSE 90; RESP 16; TEMP 37.4; O2SAT 98
== END 2023-04-21 14:30 | disposition home or self-care (01) ==
PROVIDERS: Emergency Provider Physician Assistant
DX: K04.7 Periapical abscess without sinus (principal); F17.210 Nicotine dependence, cigarettes, uncomplicated; F17.290 Nicotine dependence, other tobacco product, uncomplicated
CPT/HCPCS: 36415; 80053; 83735; 84100; 85025; 99281